=== PATIENT | female | born 1940 | race Asian ===

== ENCOUNTER 2023-04-22 13:09 | Emergency (ER) | payer OTHER ==
[~2023-04-22 13:09] MED LIST: Iopamidol 300 61% 100 ML VIAL FS ONE
[2023-04-22] MEDS ORDERED: Dexamethasone 10 MG/ML VIAL ONE (13:36)
[2023-04-22] MEDS ORDERED: Vancomycin 1 GM VIAL ONE (13:36)
[2023-04-22] MEDS ORDERED: Ampicillin/Sulbactam 3 GM in Sodium Chloride 0.9% 100 ML IVPB SCH (13:45)
[2023-04-22 13:52] LABS: Hemoglobin 10.8 g/dL (12.0-15.5); MDiff Complete? YES; Mean Corpuscular HGB CONC 33.8 g/dL (32.0-36.0); Mean Corpuscular Hemoglobin 28.5 pg (27.0-33.0); Mean Corpuscular Volume 84.4 fl (81.6-98.3); Platelet Count 253 10x3/uL (150-450); RBC Distribution Width 13.6 % (11.5-14.5); Red Blood Cell (RBC) Count 3.79 10x6/uL (3.90-5.03); White Blood Cell (WBC) Count 12.8 10x3/uL (3.5-10.5)
[2023-04-22 13:59] LABS: ALT (SGPT) 26 U/L (8-55); AST (SGOT) 34 U/L (5-34); Albumin 3.3 g/dL (3.4-4.8); Alkaline Phosphatase 142 U/L (40-110); Anion Gap 17 mmol/L (10-20); BUN (Urea Nitrogen) 24 mg/dL (9.8-20.1); Bilirubin, Total 1.3 mg/dL (0.2-1.2); Calc. Creatinine Clearance 0 mL/min (70-130); Calcium 9.5 mg/dL (7.8-10.44); Carbon Dioxide 22 mmol/L (23-31); Chloride 95 mmol/L (98-107); Estimated GFR 42; Glucose 177 mg/dL (83-110); Potassium 4.1 mmol/L (3.5-5.1); Protein, Total 7.3 g/dL (5.8-8.1); Sodium 130 mmol/L (136-145)
[2023-04-22 16:15] LABS: Band 8 % (5-11); Lymphocytes 6 % (21-51); Monocytes 7 % (0-10); Neutrophil 79 % (42-75)
[2023-04-22 16:22] LABS: Platelet Adequacy Comment Appears Adequate
[2023-04-22 16:23] LABS: RBC Morph Comment Within Normal Limits
== END 2023-04-22 15:53 | disposition short-term general hospital (02) ==
LOC: CSHERS 13:09
DX: K12.2 Cellulitis and abscess of mouth (principal); I10 Essential (primary) hypertension; E78.00 Pure hypercholesterolemia, unspecified; Z79.899 Other long term (current) drug therapy
CPT/HCPCS: 36415; 70487; 70491; 80053; 83605; 85025; 87040; 93005; 96365; 96366; 96368; 96375; J0295; J1100; J3370; J3490; Q9967